=== PATIENT | female | born 1955 | race Caucasian/White ===

== ENCOUNTER 2016-07-30 14:12 | Emergency (ER) | payer MEDICAID ==
[~2016-07-30] VITALS: Ht 165.1 cm; Wt 50.8 kg
[2016-07-30 14:32] VITALS: BP 154/83
--- NOTE | 2016-07-30 14:37 | NUR ---
PT AMBULATED TO BED 1.
--- NOTE | 2016-07-30 14:50 | NUR ---
PATIENT PRESENTS TO ED WITH LEFT FOOT PAIN W/ SWELLING AND REDNESS . PT STATES IT BEGAN 3 MONTHS AGO, DENIES ANY TRAUMA . DENIES N/V/D; SKIN IS PINK/WARM/DRY; AAOX4 WITH EVEN AND STEADY GAIT; LUNGS CLEAR BL; HR EVEN AND REGULAR; PT DENIES ANY FEVER, CP, SOB, OR COUGH AT THIS TIME; PATIENT STATES PAIN OF 8/10 AT THIS TIME; VSS; PATIENT POSITIONED FOR COMFORT; HOB ELEVATED; BEDRAILS UP X2; BED DOWN. ER MD MADE AWARE OF PT STATUS.
--- NOTE | 2016-07-30 16:03 | NUR ---
DR. ALFARO EVALUATING PATIENT AT BEDSIDE.
[2016-07-30 16:21] VITALS: BP 145/84
--- NOTE | 2016-07-30 16:22 | NUR ---
Patient discharged with v/s stable. Written and verbal after care instructions given and explained. Patient verbalized understanding. Ambulatory with steady gait. All questions addressed prior to discharge. Advised to follow up with PMD.
== END 2016-07-30 16:22 | disposition home or self-care (01) ==
LOC: MED 14:23
DX: M21.612 Bunion of left foot (principal); J45.909 Unspecified asthma, uncomplicated; F17.200 Nicotine dependence, unspecified, uncomplicated; F10.10 Alcohol abuse, uncomplicated
CPT/HCPCS: 73630; 99284; Q0092